=== PATIENT | male | born 1970 | race Caucasian/White ===

== ENCOUNTER 2024-10-09 05:55 | Day surgery (SDC) | payer OTHER, SELFPAY ==
[2024-09-25 09:07] LABS: Hematocrit 41.6 % (39.0-52.0); Mean Corp Hgb Conc. 33.7 g/dL (33.0-37.0); Mean Platelet Volume 9.2 fL (7.4-10.4); Platelet Count 239 10^3/uL (130-400); Red Blood Cell Count 4.52 10^6/uL (4.70-6.10); Red Cell Dist. Width 12.6 % (11.5-14.5); White Blood Cell Count 3.7 10^3/uL (4.8-10.8)
[2024-09-25 10:04] LABS: Blood Urea Nitrogen 25 mg/dl (9-20); Calcium 9.9 mg/dl (8.4-10.2); Carbon Dioxide 27 mmol/L (22-30); Chloride 104 mmol/L (98-107); Glucose 95 mg/dl (70-99); Sodium 142 mmol/L (135-145); eGFR > 60.00
[2024-09-25 12:56] VITALS: BMI 23.7
[2024-10-09] VITALS (8 sets, daily range): BP systolic 127–144; BP diastolic 79–86; BMI 23.7
[2024-10-09] MEDS: TYLENOL 1000 MG PO (06:20)
[2024-10-09] MEDS: NORMOSOL-R/PLASMALYTE-A 1000 IV (06:26)
== END 2024-10-09 10:16 | disposition home or self-care (01) ==
LOC: SDS 05:55
PROVIDERS: ATTENDING PHYSICIAN Surgery; FAMILY PHYSICIAN Physician Assistant Medical
DX: K40.90 Unilateral inguinal hernia, without obstruction or gangrene, not specified as recurrent (principal)
CPT/HCPCS: 49650; 36415; 80048; 85027; 93005; C1781